=== PATIENT | female | born 1990 | race Caucasian/White ===

== ENCOUNTER 2021-12-30 17:27 | Outpatient (CLI) | payer MEDICAID, SELFPAY ==
--- OUTSIDE RECORDS SUMMARY | 2021-12-30 17:31 | XMS_ITS | Clinical Summary ---
:1990 Author Organization [facility] [place] [address] Care Team Providers Name Role Phone Pcp, No Primary Care Provider Unavailable Allergies No known active allergies Medications Medication Sig Dispensed Refills Start Date End Date Status testosterone APPLY 2 PUMPS TO 0 09/24/2021 Active (ANDROGEL) 20.25 SKIN DAILY mg/1.25 gram (1.62 %) DIRECTED glpm transdermal gel Active Problems Problem Noted Date Infectious mononucleosis 02/15/2013 Depression with anxiety 10/13/2012 Encounters Date Type Specialty Care Team Description 12/15/2021 Medical Messaging Pcp, No Second Opi nion 12/01/2021 Travel 12/01/2021 Nurse Triage Eve Damico Foot Pain/p tejam ALEC Leong 11/15/2021 Transcribe Orders Rachell Fields MD 10/20/2021 Ancillary Procedure 10/20/2021 Office Visit Eve Damico Musculoskel etal Problem ALEC Leong (Multiple joint discomfort and cracking, w orse in hips, concern f or EDS) 10/20/2021 Travel from Last 3 Months Immunizations Name Administration Dates Next Due DTP 02/06/1993, 1992, 1992 DTP-HIB 02/05/1994 DTaP 12/18/1997 HIB HbOC (HibTITER) 02/06/1993, 1992, 1992 MMR 12/18/2001, 02/05/1994 Meningococcal Vaccine (Menactra) 12/22/2004 Oral Polio Vaccine 12/18/1997, 02/06/1993, 1992, 1992 Pneumococcal conj 7-Valent (Prevnar 7) 05/01/1993, 3, 1992 Tdap 12/22/2004 Family History Medical History Relation Name Comments Good Health Father Good Health Mother Relation Name Status Comments Father Mother Social History Tobacco Use Types Packs/Day Years Used Date Never Smoker Smokeless Tobacco: Never Used Tobacco Cessation: Counseling Given: Yes Alcohol Use Standard Drinks/Week Comments Yes 5 (1 standard drink = 0.6 oz pure alcoho l) occ, up to 5 per sitting Alcohol Habits Answer Date Recorded How often do you have a drink containing Not asked alcohol? How many drinks containing alcohol do you have Not asked on a typical day when you are drinking? How often do you have six or more drinks on Not asked one occasion? Comment: occ, up to 5 per sitting 07/20/2012 Sex Assigned at Date Recorded Not on file COVID-19 Exposure Response Date Recorded In the last 10 days, have you been in contact with No / Unsu re 12/01/2021 1:51 PM CDT someone who was confirmed or suspected to have Coronavirus/COVID-19? Obstetrics History Last Filed Vital Signs Vital Sign Reading Time Taken Comments Blood Pressure 109/71 10/20/2021 11:56 AM CDT Pulse 76 10/20/2021 11:56 AM CDT Temperature 36.9 ??C (98.5 ??F) 03/15/2013 2:15 PM [employer] Respiratory Rate 16 07/20/2012 9:50 AM CDT Oxygen Saturation 99% 10/20/2021 11:56 AM CDT Inhaled Oxygen Concentration - - Weight 88.7 kg (195 lb 9.6 oz) 10/20/2021 11:56 AM CDT Height 172.7 cm (5' 8) 03/15/2013 2:15 PM [employer] Body Mass Index - - Plan of Treatment Health Maintenance Due Date Last Done Comments COVID-19 vaccine series (#1) 01/21/1993 Depression screening for age 12+ 2004 BMI (ht and wt on same day) for age 18+ 2010 Hepatitis C screening for age 18-79 2010 Tetanus booster 12/22/2014 12/22/2004 Influenza for age 9-49 12/25/2021 Pap test for age 21-65 06/30/2024 06/30/2021, 06/30/2021 Tdap Completed 12/22/2004 Procedures Procedure Name Priority Date/Time Associated Diagnosis Comme nts XR HIP 1 VIEW W Routine 10/20/2021 12:36 Polyarthralgia Results for this PELVIS BILAT PM CDT Bilateral hip pain procedure are in the results section. SJOGRENS ANTIBODIES Add On 10/20/2021 12:25 Polyarthral lois Results for this PM CDT Bilateral hip pa in procedure are in Positive LEONARD the results (antinuclear antibody) secti on. ZINC SKIMMER ANTIBODY Add On 10/20/2021 12:25 Polyarthralgia Results for this PM CDT Bilateral hip pa in procedure are in Positive LEONARD the results (antinuclear antibody) secti on. ANTI-CAICEDO Add On 10/20/2021 12:25 Polyarthralgia Results for this PM CDT Bilateral hip pa in procedure are in Positive LEONARD the results (antinuclear antibody) secti on. CYCLIC CITRULLINE Add On 10/20/2021 12:25 Polyarthralgi a Results for this PEPTIDE PM CDT Bilateral hip pa in procedure are in Positive LEONARD the results (antinuclear antibody) secti on. RA QUANTITATIVE Add On 10/20/2021 12:25 Polyarthralgia Results for this PM CDT Bilateral hip pa in procedure are in Positive LEONARD the results (antinuclear antibody) secti on. DNA DOUBLE-STRANDED Add On 10/20/2021 12:25 Polyarthral lois Results for this (DSDNA) ANTIBODIES BY PM CDT Bilateral hip pain procedure are in CRITHIDIA LUCILIAE Positive LEONARD the resul ts IFA (antinuclear antibody) secti on. CBC WITH AUTO Routine 10/20/2021 12:25 Polyarthralgia Results for this DIFFERENTIAL PM CDT procedure are i n the results section. ANTINUCLEAR ANTIBODY Routine 10/20/2021 12:25 Polyarthralgia R esults for this BY IFA PM CDT procedure are i n the results section. C-REACTIVE PROTEIN Routine 10/20/2021 12:25 Polyarthralgia Res ults for this PM CDT procedure are i n the results section. SEDIMENTATION RATE Routine 10/20/2021 12:25 Polyarthralgia Res ults for this PM CDT procedure are i n the results section. COMP METABOLIC PANEL Routine 10/20/2021 12:25 Polyarthralgia R esults for this PM CDT procedure are i n the results section. CBC WITH AUTO Routine 10/20/2021 12:25 Polyarthralgia Results for this DIFFERENTIAL PM CDT procedure are i n the results section. LYME SCREEN W/REFLEX Routine 10/20/2021 12:25 Polyarthralgia R esults for this PM CDT procedure are i n the results section. from Last 3 Months Results XR HIP 1 VIEW W PELVIS BILAT (10/20/2021 12:36 PM CDT) Anatomical Region Laterality Modality HIPS, HIPL, HIPR, Pelvis Computed Radiog rose Specimen (Source) Anatomical Collection Method Collection Time Re ceived Time Location / / Volume Laterality 10/20/2021 5:32 PM CDT Narrative 10/20/2021 5:32 PM CDT For Patients: ??As a result of the Cures Act, medical imaging exams and procedure report s are released immediately into your [facility] medical record. ??You may view this report before your referring provider. ??If you have questions, please contact your health care provider. Indication: Bilateral hip pain. Technique: AP pelvis and single view of both hips Comparison: None. Findings/Impression: Bones: Alignment is normal. No fractures or bone lesions. ?? Joint spaces: Unremarkable. Soft tissues: Unremarkable. Dictated by Michelet Guerra MD @ Oct 20 ??5:32PM (Electronically Signed) ?? Procedure Note Michelet Guerra MD - 10/20/2021Form atting of this note might be different from the original. For Patients: As a result of the Cures Act, medical imaging exams and procedure reports are released immediately into your electronic medical record. You may view this report before your referring provider. If you have questions, please contact [facility] health care provider. Indication: Bilateral hip pain. Technique: AP pelvis and single view of both hips Comparison: None. Findings/Impression: Bones: Alignment is normal. No fractures or bone lesions. Joint spaces: Unremarkable. Soft tissues: Unremarkable. Dictated by Michelet Guerra MD @ Oct 20 5:32PM (Electronically Signed) Eve MICHAEL GENERAL IMAGING SEDIMENTATION RATE (10/20/2021 12:25 PM CDT) [facility] Method Time Signature SEDIMENTATION RATE 2 <20 mm/hr 10/20/2021 [facility] 9:26 PM CDT LABORATORY-MALI TRAL LABORATORY Specimen Anatomical Collection Method / Collection Time Recei jw Time (Source) Location / Volume Laterality Blood BLOOD SPECIMEN / Venipuncture / 10/20/2021 12:25 10/20 Unknown Unknown PM CDT 12:30 PM CDT Eve MICHAEL HEMATOLOGY Performing Organization Address City/State/ZIP Code Phon e Number [facility] [address] [place] [address] LABORATORY-CENTRAL 2000 LABORATORY (ABNORMAL) ANTINUCLEAR ANTIBODY BY IFA (10/20/2021 12:25 PM CDT) [facility] Method Time Signature ANTINUCLEAR Positive (A) Negative 10/21/2021 [facility] ANTIBODY (LEONARD) 12:13 PM LABORATORY-CE CDT NTRAL LABORATORY LEONARD PATTERN 1 Homogenous (none) 10/21/2021 [facility] (A) 12:13 PM LABORATORY-CE CDT NTRAL LABORATORY LEONARD TITER 1 1:160 (A) (none) 10/21/2021 [facility] 12:13 PM LABORATORY-CE CDT NTRAL LABORATORY Specimen Anatomical Collection Method / Collection Time Recei jw Time (Source) Location / Volume Laterality Blood BLOOD SPECIMEN / Venipuncture / 10/20/2021 12:25 10/20 Unknown Unknown PM CDT 12:30 PM CDT Narrative [facility] LABORATORY-CENTRAL LABORAT ORY - 10/21/2021 12:13 PM CDT Method: LEONARD screen performed by (IFA) on HEP-2 substrate, IgG Eve MICHAEL CHEMISTRY Performing Organization Address City/State/ZIP Code Phon e Number [facility] [address] [place] [address] LABORATORY-CENTRAL 1999 LABORATORY CBC WITH AUTO DIFFERENTIAL (10/20/2021 12:25 PM CDT) athologist Signature WHITE BLOOD 6.8 4.5 - 11.0 10/20/2021 [facility] COUNT thou/cu mm 12:33 PM CDT [facility] RED BLOOD COUNT 4.89 4.00 - 10/20/2021 [facility] 5.20 12:33 PM T [place] mil/cu CLINIC HEMOGLOBIN 15.0 12.0 - 10/20/2021 [facility] 16.0 g/dL 12:33 PM T [facility] HEMATOCRIT 42.8 33.0 - 10/20/2021 [facility] 51.0 % 12:33 PM T [facility] MCV 88 80 - 100 10/20/2021 [facility] fL 12:33 PM CDT [facility] MCH 30.7 26.0 - 10/20/2021 [facility] 34.0 pg 12:33 PM T [facility] MCHC 35.0 32.0 - 10/20/2021 [facility] 36.0 g/dL 12:33 PM T [facility] RDW 12.7 11.5 - 10/20/2021 [facility] 15.5 % 12:33 PM T [facility] PLATELET COUNT 224 140 - 440 10/20/2021 [facility] thou/cu mm 12:33 PM T [facility] MPV 9.4 6.5 - 11.0 10/20/2021 [facility] fL 12:33 PM T [facility] NEUTROPHILS 54.2 % 10/20/2021 [facility] 12:33 PM T [facility] LYMPHOCYTES 33.8 % 10/20/2021 [facility] 12:33 PM T [facility] MONOCYTES 6.5 % 10/20/2021 [facility] 12:33 PM T [facility] EOSINOPHILS 5.2 % 10/20/2021 [facility] 12:33 PM CDT [facility] BASOPHILS 0.3 % 10/20/2021 [facility] 12:33 PM CDT [facility] ABSOLUTE 3.7 1.7 - 7.0 10/20/2021 [facility] NEUTROPHILS thou/cu mm 12:33 PM CDT [facility] ABSOLUTE 2.3 0.9 - 2.9 10/20/2021 [facility] LYMPHOCYTES thou/cu mm 12:33 PM CDT [facility] ABSOLUTE 0.4 <0.9 10/20/2021 [facility] MONOCYTES thou/cu mm 12:33 PM CDT [facility] ABSOLUTE 0.4 <0.5 10/20/2021 [facility] EOSINOPHILS thou/cu mm 12:33 PM CDT [facility] ABSOLUTE 0.0 <0.3 10/20/2021 [facility] BASOPHILS thou/cu mm 12:33 PM CDT [facility] Specimen Anatomical Collection Method / Collection Time Recei jw Time (Source) Location / Volume Laterality Blood BLOOD SPECIMEN / Venipuncture / 10/20/2021 12:25 10/20 Unknown Unknown PM CDT 12:30 PM CDT Eve MICHAEL HEMATOLOGY Performing Organization Address City/[facility]/ZIP Code Phon e Number [facility] [address] [place] [address] ZINC SKIMMER ANTIBODY (10/20/2021 12:25 PM CDT) P athologist Signature ZINC SKIMMER Antibody <3.5 <=19.9 CU 10/22/2021 [facility] 12:36 PM CDT LABORATORY-[facility] LABORATORY Specimen Anatomical Collection Method / Collection Time Recei jw Time (Source) Location / Volume Laterality Blood BLOOD SPECIMEN / Venipuncture / 10/20/2021 12:25 10/20 Unknown Unknown PM CDT 12:30 PM CDT [facility] LABORATORY-CENTRAL LABORAT ORY - 10/22/2021 12:36 PM CDT Reference Range: ?< 20 CU Negative; ?>=20 CU Positive; ?? These results were obtained with the Clickable Quanta Flash ZINC SKIMMER chemiluminescent immunoassay. Values obtained with different manufacturers' methods may not be used interchangeably. Eve MICHAEL SEND OUTS Performing Organization Address City/State/ZIP Code Phon e Number [facility] [address] [place] [address] LABORATORY-CENTRAL 2000 LABORATORY ANTI-CAICEDO (10/20/2021 12:25 PM CDT) P athologist Signature Sm Antibody <3.3 <=19.9 CU 10/22/2021 [facility] 12:36 PM CDT LABORATORY-CENT RAL LABORATORY Specimen Anatomical Collection Method / Collection Time Recei jw Time (Source) Location / Volume Laterality Blood BLOOD SPECIMEN / Venipuncture / 10/20/2021 12:25 10/20 Unknown Unknown PM CDT 12:30 PM CDT Narrative [facility] 10/22/2021 12:36 PM CDT Reference Range: ? < 20 CU Negative; ? >=20 CU Positive; ?? These results were obtained with the Clickable Quanta Flash Sm chemiluminescent immunoassay. Values obtained with different manufacturers' methods may not be used interchangeably. Eve MICHAEL SEND OUTS Performing Organization Address City/[facility]/ZIP Code Phon e Number [facility] [address] [place] [address] LABORATORY-CENTRAL 2000 LABORATORY (ABNORMAL) SJOGRENS ANTIBODIES (10/20/2021 12:25 PM CDT) Analysis Performed At Patho logist Time Signature Ro52 Antibody <2.3 <=19.9 CU 10/22/2021 [facility] 12:36 PM CDT LABORATORY-MALI TRAL LABORATORY Ro60 Antibody 59.4 (H) <=19.9 CU 10/22/2021 [facility] 12:36 PM CDT LABORATORY-MALI TRAL LABORATORY SS-B ANTIBODY <3.3 <=19.9 CU 10/22/2021 [facility] 12:36 PM CDT LABORATORY-MALI TRAL LABORATORY Specimen Anatomical Collection Method / Collection Time Recei jw Time (Source) Location / Volume Laterality Blood BLOOD SPECIMEN / Venipuncture / 10/20/2021 12:25 10/20 Unknown Unknown PM CDT 12:30 PM CDT Narrative [facility] - 10/22/2021 12:36 PM CDT Reference Range: ? < 20 CU Negative ?? >=20 CU Positive These results were obtained with the Clickable Quanta Flash SS-B, Ro52, Ro60 chemiluminescent immunoassay. Values obtained with different manufacturers' methods may not be used interchangeably. The magnitude of the reported autoantibody levels cannot always be correla anastasiia to an endpoint titer. ? Eve MICHAEL SEND OUTS Performing Organization Address [facility]/ZIP Code Phon e Number [employer] [address] [facility] [place] [address] LABORATORY-CENTRAL 2000 LABORATORY CYCLIC CITRULLINE PEPTIDE (10/20/2021 12:25 PM CDT) athologist Signature CCP <4.6 <=19.9 CU 10/22/2021 [facility] Antibody,IgG/I 12:36 PM CDT LABORATORY-C ENT gA RAL LABORATORY Specimen Anatomical Collection Method / Collection Time Recei jw Time (Source) Location / Volume Laterality Blood BLOOD SPECIMEN / Venipuncture / 10/20/2021 12:25 10/20 Unknown Unknown PM CDT 12:30 PM CDT Narrative [facility] LABORATORY-CENTRAL LABORAT ORY - 10/22/2021 12:36 PM CDT Negative <20 Positive >=20 The following results were obtained with the Frontback[employer] Flash CCP3 chemiluminescent immunoassay. Values obtained with different manufacturers' assay methods may not be used interchangeably. Eve MICHAEL SEND OUTS Performing Organization Address [facility] Phon e Number [facility] [address] [place] [address] LABORATORY-CENTRAL 2000 LABORATORY LYME SCREEN W/REFLEX (10/20/2021 12:25 PM CDT) Analysis Performed At [facility] Time Signature LYME SCREEN Negative Negative 10/21/2021 [facility] W/REFLEX 8:48 AM CDT LABORATORY-MALI TRAL LABORATORY Comment: No detectable antibody; result does not exclude B. burgdorferi infection. An additional sample should be tested withi n 4-6 weeks if early infection is suspected. Specimen Anatomical Collection Method / Collection Time Recei jw Time (Source) Location / Volume Laterality Blood BLOOD SPECIMEN / Venipuncture / 10/20/2021 12:25 10/20 Unknown Unknown PM CDT 12:30 PM CDT Eve MICHAEL SEND OUTS Performing Organization Address City/[facility]/ZIP Code Phon e Number [facility] [address] [facility] [place] [address] LABORATORY-CENTRAL 2000 LABORATORY RA QUANTITATIVE (10/20/2021 12:25 PM CDT) athologist Signature RHEUMATOID <7.00 <12.50 10/21/2021 [facility] FACTOR,QUANT IU/mL 1:26 PM CDT LABORATORY-CENT RAL LABORATORY Specimen Anatomical Collection Method / Collection Time Recei jw Time (Source) Location / Volume Laterality Blood BLOOD SPECIMEN / Venipuncture / 10/20/2021 12:25 10/20 Unknown Unknown PM CDT 12:30 PM CDT Eve MICHAEL SEND OUTS Performing Organization Address City/[facility]/ZIP Code Phon e Number [facility] [address] [place] [address] [address] LABORATORY-CENTRAL 2000 LABORATORY [id number] (10/20/2021 12:25 PM CDT) Analysis Performed At Patho logist Time Signature ANTI-KWINHAGAK Negative Negative 10/22/2021 [facility] DNA 1:04 PM CDT LABORATORY-MALI TRAL LABORATORY Specimen Anatomical Collection Method / Collection Time Recei jw Time (Source) Location / Volume Laterality Blood BLOOD SPECIMEN / Venipuncture / 10/20/2021 12:25 10/20 Unknown Unknown PM CDT 12:30 PM CDT Narrative [facility] LABORATORY-CENTRAL LABORAT ORY - 10/22/2021 1:04 PM CDT Method: DNA Double-Stranded (dsDNA) Anti bodies by Crigood lucmolly IFA, IgG, Serum Eve MICHAEL SEND OUTS Performing Organization Address City/[facility]/ZIP Code Phon e Number [facility] [address] [place] [address] LABORATORY-CENTRAL 2000 LABORATORY C-REACTIVE PROTEIN (10/20/2021 12:25 PM CDT) P athologist Signature C-REACTIVE 0.03 <0.50 10/21/2021 [facility] PROTEIN mg/dL 12:42 AM CDT LABORATORY-CENT RAL LABORATORY Specimen Anatomical Collection Method / Collection Time Recei jw Time (Source) Location / Volume Laterality Blood BLOOD SPECIMEN / Venipuncture / 10/20/2021 12:25 10/20 Unknown Unknown PM CDT 12:30 PM CDT Eve MICHAEL CHEMISTRY Performing Organization Address City/[facility]/ZIP Code Phon e Number [facility] [address] [place] [address] LABORATORY-CENTRAL 2000 LABORATORY COMP METABOLIC PANEL (10/20/2021 12:25 PM CDT) P athologist Signature SODIUM 141 135 - 145 10/21/2021 [facility] mmol/L 12:45 AM CDT LABORATORY-MALI TRAL LABORATORY POTASSIUM 4.1 3.5 - 5.0 10/21/2021 [facility] mmol/L 12:45 AM CDT LABORATORY-MALI TRAL LABORATORY CHLORIDE 104 98 - 110 10/21/2021 [facility] mmol/L 12:45 AM CDT LABORATORY-MALI TRAL LABORATORY CO2,TOTAL 30 21 - 31 10/21/2021 [facility] mmol/L 12:45 AM CDT LABORATORY-MALI TRAL LABORATORY ANION GAP 7 5 - 18 10/21/2021 [facility] 12:45 AM CDT LABORATORY-MALI TRAL LABORATORY GLUCOSE 91 65 - 100 10/21/2021 [facility] mg/dL 12:45 AM CDT LABORATORY-MALI TRAL LABORATORY CALCIUM 10.0 8.5 - 10.5 10/21/2021 [facility] mg/dL 12:45 AM CDT LABORATORY-MALI TRAL LABORATORY BUN 11 8 - 25 10/21/2021 [facility] mg/dL 12:45 AM CDT LABORATORY-MALI TRAL LABORATORY CREATININE 0.87 0.57 - 10/21/2021 [facility] 1.11 mg/dL 12:45 AM CDT LABORATORY-MALI TRAL LABORATORY BUN/CREAT RATIO 13 10 - 20 10/21/2021 [facility] 12:45 AM CDT LABORATORY-MALI TRAL LABORATORY ALBUMIN 4.8 3.5 - 5.2 10/21/2021 [facility] g/dL 12:45 AM CDT LABORATORY-MALI TRAL LABORATORY PROTEIN,TOTAL 8.0 6.0 - 8.0 10/21/2021 [facility] g/dL 12:45 AM CDT LABORATORY-MALI TRAL LABORATORY GLOBULIN 3.2 2.0 - 3.7 10/21/2021 [facility] g/dL 12:45 AM CDT LABORATORY-MALI TRAL LABORATORY A/G RATIO 1.5 1.0 - 2.0 10/21/2021 [facility] 12:45 AM CDT LABORATORY-MALI TRAL LABORATORY BILIRUBIN,TOTAL 0.7 0.2 - 1.2 10/21/2021 [facility] mg/dL 12:45 AM CDT LABORATORY-MALI TRAL LABORATORY ALK PHOSPHATASE 57 50 - 136 10/21/2021 [facility] IU/L 12:45 AM CDT LABORATORY-MALI TRAL LABORATORY ALT (SGPT) 15 8 - 45 10/21/2021 [facility] IU/L 12:45 AM CDT LABORATORY-MALI TRAL LABORATORY AST (SGOT) 19 2 - 40 10/21/2021 [facility] IU/L 12:45 AM CDT LABORATORY-MALI TRAL LABORATORY eGFR >90 >90 10/21/2021 [facility] mL/min/1.7 12:45 AM CDT LABORATORY-MALI 3m2 TRAL LABORATORY Comment: As of 2021, eGFR is calcu lated by the CKD-EPI creatinine equation without race adjustment. eGFR can be inf luenced by muscle mass, exercise, and diet. The reported eGFR is an estimation only and is only applicable if the renal function is stable. Specimen Anatomical Collection Method / Collection Time Recei jw Time (Source) Location / Volume Laterality Blood BLOOD SPECIMEN / Venipuncture / 10/20/2021 12:25 10/20 Unknown Unknown PM CDT 12:30 PM CDT Eve MICHAEL CHEMISTRY Performing Organization Address City/State/ZIP Code Phon e Number [facility] [address] [place] [address] LABORATORY-CENTRAL 2000 LABORATORY from Last 3 Months Insurance Payer Benefit Plan / Subscriber ID Effective Dates Phone Addre ss Type Group [facility] [place] [facility] [place] [id number] 2021-Present [address] [place] [address] Care Teams Corporate Strategy Associate Relationship Specialty Start Date End Date Pcp, No PCP - General 04/01/18 .
[2022-01-01 16:31] LABS: Sex Hormone Binding Globulin 33 nmol/L (25-122); Testosterone, Adult Male 362 ng/dL; Testosterone, Free Calculation 66 pg/mL; Testosterone, Percentage Free 1.8 %
== END 2021-12-30 17:28 | disposition home or self-care (01) ==
LOC: NFLDREF 17:29
PROVIDERS: PCP Family Medicine; Visit Provider Registered Nurse
DX: F64.0 Transsexualism (principal)
CPT/HCPCS: 84270; 84402; 84403

== ENCOUNTER 2022-06-16 10:00 | Outpatient (RCR) | payer MEDICAID, SELFPAY | END 2022-11-12 23:59 | disposition home or self-care (01) | PROVIDERS: PCP Family Medicine; Visit Provider Family Medicine | DX: M35.7 Hypermobility syndrome (principal); M54.9 Dorsalgia, unspecified; Z51.89 Encounter for other specified aftercare | CPT/HCPCS: 97110; 97140; 97163; 97535 ==

== ENCOUNTER 2022-07-06 11:49 | Outpatient (CLI) | payer MEDICAID, SELFPAY | END 2022-07-06 11:50 | disposition home or self-care (01) | LOC: NFLDREF 07-08 11:50 | PROVIDERS: PCP Family Medicine; Referring Provider Family Medicine; Visit Provider Registered Nurse | DX: F64.0 Transsexualism (principal) | CPT/HCPCS: 84270; 84402; 84403 ==

== ENCOUNTER 2022-08-11 14:42 | Outpatient (CLI) | payer MEDICAID, SELFPAY | END 2022-08-11 14:43 | disposition home or self-care (01) | LOC: NFLDREF 14:44 | PROVIDERS: PCP Family Medicine; Visit Provider Registered Nurse | DX: F64.0 Transsexualism (principal); Z13.1 Encounter for screening for diabetes mellitus | CPT/HCPCS: 84270; 84402; 84403 ==

== ENCOUNTER 2022-08-25 08:20 | Outpatient (CLI) | payer MEDICAID, SELFPAY | END 2022-08-25 08:21 | disposition home or self-care (01) | LOC: NFLDREF 22:02 | PROVIDERS: PCP Family Medicine; Referring Provider Family Medicine; Visit Provider Family Medicine | DX: Z00.00 Encounter for general adult medical examination without abnormal findings (principal); E78.5 Hyperlipidemia, unspecified | CPT/HCPCS: 80053; 80061 ==

== ENCOUNTER 2022-12-01 08:15 | Outpatient (RCR) | payer MEDICAID, SELFPAY ==
--- NOTE | 2022-09-14 15:48 | PT.OPEX ---
[facility] PT [facility] Outpatient Eval Start: 09/14/22 14:53 Freq: Status: Active Protocol: Document 09/14/22 14:53 JENNIFER (Rec: 09/14/22 15:41 BJN [id number]) E-signed By Marielos Mckinney DPT Physical Therapy Outpatient Evaluation Insurance Information Recert Due Date 12/13/22 Insurance Name Medicaid,are Medical Diagnosis LBP, dorsalgia, chronic upper back pain Treating Diagnosis LBP, mid/low back pain, R sided SI joint pain with wrap around groin pain, pelvic instability, core/hip/glut weakness Subjective Subjective Patient reports LBP R sided with some wrap around pain R hip/groin. Reports hx of some LBP issues, prior PT. Has been doing some walking and some of the supine exercises from prior PT but admits to getting out of her HEP routine , not doing the ball exercises . Recently started on gabapentin in the evening, this is helping improve sleep and less pain in the mornings. Hasn?t been using ice/heat. Pain range 2-8/10. Pain fluctuates with activity, typically pain is in the 3-5/ 10 range. Date of Last Physician Visit 08/26/22 Current Work Status [employer] Assessment Assessment/Impression 32 year old patient with LBP, mid/low back pain, R sided SI joint pain with wrap around groin pain, pelvic instability , core/hip/glut weakness. Pain range 2-8/10. Patient states that pain/sx fluctuate depending on activity but typical pain levels are 3-5/10 . LBP has been more R sided and wrapping around R hip, into R groin area. Denies LE radicular pain/sx, occasional pain/soreness into R hip/thigh . No prior back, hip, knee surgeries. Recently started on gabapentin before bed and this has been helpful with sleep and less pain in the mornings. Patient is tight, tender with palpation R LB, SI , buttock region. Pelvic rotation noted. Able to correct alignment with MET, stabilized with exercises. Patient has episode of PT last fall and into the new year but has not continued with her HEP. Doing some of the supine exercises, hasn't been doing the stability ball exercises. Patient would benefit from skilled PT for pain/sx management, core/hip/ glut strengthening, improved spine/pelvic stabilization, posture/body mechanics, and establishment of HEP. Plan of Care Rehabilitation Potential Good Physical Therapy Goals 1. Decrease LBP, R hip/thigh/ groin pain to less than/equal to 3/10 with daily/work activities and with the progression of PT activities over the next 4-6 weeks. 2. Patient will be educated on posture/body mechanics and pain management strategies over the next 4-6 weeks for decreased stress to LB/pelvis/hip and improved pelvic stability. 3. Improve core/hip/glut strength and posture over the next 8-10 weeks for improved posture/body mechanics, decreased stress to LB/pelvis/hip, improved pelvic stability, and improved tolerance for extended sitting/standing/walking activities without flare up of pain. 4. Patient will be I with HEP within 10 weeks for progression toward above goals, ongoing self management of pain/sx, ongoing self improvements in core/hip/glut strength, posture/body mechanics, pelvic stability, and for return to PLF with daily/ work/leisure activities without flare up of pain. Coordination/Communication With Referral Source Treatment Plan/Direct Interventions Manual Therapy,Therapeutic Exercises Frequency/Duration 1x/week Patient Will Be Discharged From Therapy Completion of LTG(s),Skills Plateau,Independent w/HEP, Independently Progressing Evaluation Billing Untimed Code Treatment Minutes 24 Complexity Moderate Certification Information Initial Certification Date 09/14/22 Ending Certification Date 12/13/22 Provider Signature Shows Agreement With POC & Medical Necessity Physician Signature & Date Requested Please Sign/Date Here Physician Comment/Change : Physician NPI Number #
== END 2023-03-31 23:59 | disposition home or self-care (01) ==
PROVIDERS: PCP Family Medicine; Visit Provider Family Medicine
DX: M54.50 Low back pain, unspecified (principal); G89.29 Other chronic pain; M54.16 Radiculopathy, lumbar region; M51.36 Other intervertebral disc degeneration, lumbar region; M47.816 Spondylosis without myelopathy or radiculopathy, lumbar region; Z51.89 Encounter for other specified aftercare
CPT/HCPCS: 97110; 97140; 97162

== ENCOUNTER 2022-12-02 14:33 | Outpatient (CLI) | payer MEDICAID, SELFPAY | END 2022-12-02 14:34 | disposition home or self-care (01) | LOC: NFLDREF 14:35 | PROVIDERS: PCP Family Medicine; Visit Provider Registered Nurse | DX: F64.0 Transsexualism (principal); R73.01 Impaired fasting glucose | CPT/HCPCS: 84270; 84402; 84403 ==

== ENCOUNTER 2022-12-15 13:45 | Outpatient (CLI) | payer MEDICAID, SELFPAY ==
--- NOTE | 2022-12-15 13:49 | CRLHL7_ITS ---
For Patients: As a result of the Century Cures Act, medical imaging exams and procedure reports are released immediately into your electronic medical record. You may view this report before your referring provider. If you have questions, please contact your health care provider. Indication: DDD Technique: Noncontrast sagittal and axial T1, T2, and sagittal STIR sequences are provided. Comparison: 08/26/2022 XR Findings: Normal lumbar spinal alignment. Vertebral body heights are maintained. No fractures. No prevertebral or paraspinal edema. No aggressive osseous lesions. Decreased T1 signal and increased T2/stir signal in the L4 inferior endplate and L5 superior endplate and subchondral marrow compatible with Modic type 1 endplate degenerative changes. Disc desiccation at L4-5 and L5-S1. Mild interspace narrowing L4-5 moderate space narrowing at L5-S1. The conus medullaris is normal in signal and location. Bilateral small upper pole renal cysts. T12-L1: No significant spinal canal stenosis or neural foramen narrowing. L1-2: No significant spinal canal stenosis or neural foramen narrowing. L2-3: No significant spinal canal stenosis or neural foramen narrowing. L3-4: Mild disc bulge. No significant spinal canal stenosis or neural foramen narrowing. L4-5: Moderate disc space narrowing and disc desiccation. Circumferential disc bulge and central disc protrusion. Mild spinal canal stenosis and bilateral subarticular recess stenosis. Mild left neural foramen narrowing. L5-S1: Moderate interspace narrowing. Mild facet arthrosis. Disc bulge and endplate osteophytic spurring. No spinal canal stenosis. Moderate right and mild left neural foramen narrowing. Impression: 1. Normal alignment. 2. At L4-5, there is moderate disc degeneration with Modic type 1 endplate degenerative changes. Disc bulge with central protrusion contributes to mild spinal canal stenosis and subarticular recess narrowing. 3. At L5-S1, there is moderate disc degeneration and mild facet arthrosis without significant spinal canal stenosis. Moderate right and mild left neural foramen narrowing. Dictated by Jalen Saavedra MD @ 12/16/2022 10:50:15 AM (Electronically Signed)
== END 2022-12-15 13:46 | disposition home or self-care (01) ==
LOC: MRI 13:46
PROVIDERS: PCP Family Medicine; Visit Provider Family Medicine
DX: M51.36 Other intervertebral disc degeneration, lumbar region (principal); M51.37 Other intervertebral disc degeneration, lumbosacral region; M47.816 Spondylosis without myelopathy or radiculopathy, lumbar region
CPT/HCPCS: 72148

== ENCOUNTER 2023-02-02 07:46 | Outpatient (CLI) | payer MEDICAID, SELFPAY | END 2023-02-02 07:47 | disposition home or self-care (01) | LOC: INJ CL 07:46 | PROVIDERS: PCP Family Medicine; Visit Provider Family Medicine | DX: M54.16 Radiculopathy, lumbar region (principal); M51.26 Other intervertebral disc displacement, lumbar region; M51.36 Other intervertebral disc degeneration, lumbar region | CPT/HCPCS: 62323; J0702; Q9966 ==

== ENCOUNTER 2023-05-11 10:53 | Outpatient (CLI) | payer MEDICAID, SELFPAY ==
--- OUTSIDE RECORDS SUMMARY | 2023-05-11 10:55 | XMS_ITS | Clinical Summary ---
Author Name Unknown Organization [facility] Address [place], [place] [address] Care Team Providers Care Prospect Manager Name Role Phone Pcp, No Primary Care Provider Unavailabl e Allergies No known active allergies Medications Medication Sig Dispensed Refills Start Date End Date Status testosterone (ANDROGEL) 20.25 mg/1.25 gram (1.62 %) glpm transdermal gel APPLY 2 PUMPS TO SKIN DAILY DIRECTED 0 09/24/2021 Active Vyvanse 40 mg capsule Take 40 mg by mouth once daily. 0 09/25/2022 Active gabapentin (NEURONTIN) 100 mg capsule TAKE 1 CAPSULE BY MOUTH EVERY DAY AT BEDTIME 0 09/22/2022 Active buPROPion (WELLBUTRIN XL) 150 mg Extended-Release tablet Take 150 mg by mouth once daily. 0 09/23/2022 Active celecoxib (CELEBREX) 200 mg capsuleIndications: DDD (degenerative disc disease), lumbar Take 1 Capsule (200 mg) by mouth two times daily with meals. 60 Capsule 2 12/03/2022 Active multivitamin (MVI) tablet Take 1 Tablet by mouth once daily. 0 Active sodium chloride (OCEAN) 0.65 % nasal solutionIndications :Nasal obstruction Inhale 2 Sprays into affected nostril(s) every 4 hours. While awake until follow-up appointment. 45 mL 0 12/31/2022 Active oxyCODONE-acetamino phen (PERCOCET) 5-325 mg per tabletIndications:N hellen obstruction Take 1-2 Tablets by mouth every 4 hours if needed for Pain. Max acetaminophen dose: 4000mg in 24 hrs. 15 Tablet 0 12/31/2022 Active methylPREDNISolone (Medrol, Reinaldo,) 4 mg tabletIndications:L umbar radiculopathy Take by mouth as instructed per packaging. 21 Tablet 0 05/06/2023 Active Active Problems Problem Noted Date Diagnosed Date Infectious mononucleosis 02/15/2013 Depression with anxiety 10/13/2012 Encounters Date Type Department Care Team Description 05/11/2023 Travel 05/06/2023 2:20 PM ACTUARIAL INTERN Office Visit [facility] [address] [place] [address] Jame Camarena MD Musculoskeletal Problem (Follow up back pain, SABIHA on 02/02/23) 05/06/2023 Travel from Last 3 Months Immunizations Name Administration Dates Next Due DTP 02/06/1993,1992,1992 DTP-HIB 02/05/1994 DTaP 12/18/1997 HIB HbOC (HibTITER) 02/06/1993,1992,1992 MMR 12/18/2001,02/05/1994 Meningococcal Vaccine (Menactra) 12/22/2004 Oral Polio Vaccine 12/18/1997, 3,1992,09/17 Pneumococcal conj 7-Valent (Prevnar 7) 4,1992,1992 Tdap 12/22/2004 Family History Medical History Relation Name Comments Good Health Father Good Health Mother Relation Name Status Comments Father Mother Social History Tobacco Use Types Packs/Day Years Used Date Smoking Tobacco: Never Smokeless Tobacco: Never Tobacco Cessation:Counseling Given: Yes Alcohol Use Standard Drinks/Week Comments Yes 5 (1 standard drink = 0.6 oz pur e alcohol) 4/month Social Connections Answer Date Recorded Frequency of Communication with Friends and Fami ly Not on file 10/20/2021 Sex and Gender Information Value Date Recorded Sex Assigned at Not on file Gender Identity Not on file Sexual Orientation Not on file Obstetrics History Last Filed Vital Signs Vital Sign Reading Time Taken Comments Blood Pressure 134/89 05/06/2023 2:25 PM ACTUARIAL INTERN Pulse 111 05/06/2023 2:25 PM ACTUARIAL INTERN Temperature 36.8 ??C (98.3 ??F) 05/06/2023 2:25 PM CS T Respiratory Rate 18 01/07/2023 2:14 PM CDT Oxygen Saturation 100% 05/06/2023 2:25 PM ACTUARIAL INTERN Inhaled Oxygen Concentration - - Weight 88.8 kg (195 lb 12.8 oz) 05/06/2023 2:25 PM ACTUARIAL INTERN shoes on Height 172.7 cm (5' 8) 12/31/2022 7:29 AM CDT Body Mass Index 29.77 12/31/2022 7:29 AM CDT Plan of Treatment Upcoming Encounters Date Type Department Care Team (Late st Contact Info) Description 05/11/2023 11:20 AM ACTUARIAL INTERN Office Visit [facility] [address] [place] [address] Jame Camarena MD [address] [place] [address] Arrived 07/01/2023 1:40 PM ACTUARIAL INTERN Office Visit [facility] [address] [place] [address] Jame Camarena MD [address] [place] [address] Health Maintenance Due Date Last Done Comments Depression screening for age 12+ 2004 HIV for age 15-65 07/22/2007 BMI (ht and wt on same day) for age 18+ 2010 Hepatitis C screening for ag e 18-79 2010 Tetanus booster 12/22/2014 12/22/2004 COVID-19 vaccine series ( season) 2022 01/24/2022 Influenza for age 9-49 12/25/2022 Pap test for age 21-65 06/30/2024 2, 06/30/2021 Pneumococcal series for age 6-64 Aged Out 05/01/1993, 1992, 1992 No longer eligible based on patient's age to complete this topic Tdap Completed 12/22/2004 Procedures Procedure Name Priority Date/Time Associated Diagnosis Comments AMB EPIDURAL STEROID INJECTION Routine 05/11/2023 8:02 AM ACTUARIAL INTERN Lumbar radiculopathy DDD (degenerative disc disease), lumbar Lumbar disc herniation Lumbar facet arthropathy from Last 3 Months Advance Directives Latest Code Status on File Code Status Date Activated Date Inactivated Comments Full Code 12/31/2022 6:56 AM 12/31/2022 3:04 PM Question Answer Comments Code Status Discussion: Reviewed Preferences Care Teams Prospect Manager Relationship Specialty Start Date End Date Pcp, No . PCP - General 04/01/18
== END 2023-05-11 10:54 | disposition home or self-care (01) ==
LOC: INJ CL 10:54
PROVIDERS: PCP Family Medicine; Visit Provider Family Medicine
DX: M51.36 Other intervertebral disc degeneration, lumbar region (principal); M54.16 Radiculopathy, lumbar region
CPT/HCPCS: 62323; J0702; Q9966

== ENCOUNTER 2023-07-28 09:15 | Outpatient (RCR) | payer MEDICAID, SELFPAY | END 2023-09-16 13:13 | disposition home or self-care (01) | PROVIDERS: PCP Family Medicine; Visit Provider Family Medicine | DX: M47.816 Spondylosis without myelopathy or radiculopathy, lumbar region (principal); M51.26 Other intervertebral disc displacement, lumbar region; Z51.89 Encounter for other specified aftercare | CPT/HCPCS: 97110; 97140; 97162; 97164 ==

== ENCOUNTER 2023-09-01 11:03 | Outpatient (CLI) | payer MEDICAID, SELFPAY ==
--- OUTSIDE RECORDS SUMMARY | 2023-09-01 11:06 | XMS_ITS | Clinical Summary ---
Author Name Unknown Organization [facility] Address [place], [place] [address] Care Team Providers Care Psychological Operations Officer Name Role Phone Pcp, No Primary Care Provider Unavailabl e Allergies Active Allergy Reactions Criticality Noted Date Comments Oxycodone Nausea Only Medium 06/16/2023 nausea Medications Medication Sig Dispensed Refills Start Date End Date Status testosterone (ANDROGEL) 20.25 mg/1.25 gram (1.62 %) glpm transdermal gel APPLY 2 PUMPS TO SKIN DAILY DIRECTED 09/24/2021 Active Vyvanse 40 mg capsule Take 40 mg by mouth once daily. 09/25/2022 Active gabapentin (NEURONTIN) 100 mg capsule TAKE 1 CAPSULE BY MOUTH EVERY DAY AT BEDTIME 09/22/2022 Active buPROPion (WELLBUTRIN XL) 150 mg Extended-Release tablet Take 150 mg by mouth once daily. 09/23/2022 Active celecoxib (CELEBREX) 200 mg capsuleIndications: DDD (degenerative disc disease), lumbar Take 1 Capsule (200 mg) by mouth two times daily with meals. 60 Capsule 2 12/03/2022 Active multivitamin (MVI) tablet Take 1 Tablet by mouth once daily. Active sodium chloride (OCEAN) 0.65 % nasal solutionIndications :Nasal obstruction Inhale 2 Sprays into affected nostril(s) every 4 hours. While awake until follow-up appointment. 45 mL 12/31/2022 Active oxyCODONE-acetamino phen (PERCOCET) 5-325 mg per tabletIndications:N hellen obstruction Take 1-2 Tablets by mouth every 4 hours if needed for Pain. Max acetaminophen dose: 4000mg in 24 hrs. 15 Tablet 12/31/2022 Active methylPREDNISolone (Medrol, Reinaldo,) 4 mg tabletIndications:L umbar radiculopathy Take by mouth as instructed per packaging. 21 Tablet 05/06/2023 Active tiZANidine (ZANAFLEX) 4 mg tabletIndications:C hronic midline thoracic back pain,Lumbar disc herniation TAKE 1 TABLET(4 MG) BY MOUTH EVERY 6 HOURS NEEDED FOR MUSCLE SPASM 360 Tablet 07/20/2023 Active Active Problems Problem Noted Date Diagnosed Date Infectious mononucleosis 02/15/2013 Depression with anxiety 10/13/2012 Encounters Date Type Department Care Team Description 08/19/2023 8:40 AM CDT Office Visit [facility] [address] [place] [address] Jame Camarena MD Musculoskeletal Problem (Follow up back pain, had an SABIHA on 05/11/23) 08/19/2023 Travel 08/16/2023 Refill [facility] [address] [place] [address] Jame Camarena MD Refill Request (Tizanidine) 07/19/2023 Refill [facility] [address] [place] [address] Jame Camarena MD Refill Request (Tizanidine) from Last 3 Months Immunizations Name Administration [...] Sign Reading Time Taken Comments Blood Pressure 125/83 08/19/2023 8:45 AM CDT Pulse 100 08/19/2023 8:45 AM CDT Temperature 36.8 ??C (98.3 ??F) 05/06/2023 2:25 PM CS T Respiratory Rate 18 01/07/2023 2:14 PM CDT Oxygen Saturation 97% 08/19/2023 8:45 AM CDT Inhaled Oxygen Concentration - - Weight 88.8 kg (195 lb 12.8 oz) 05/06/2023 2:25 PM BIZTALK DEVELOPER shoes on Height 172.7 cm (5' 8) 12/31/2022 7:29 AM CDT Body Mass Index 29.77 12/31/2022 7:29 AM CDT Plan of Treatment Health Maintenance Due Date Last Done Comments Depression screening for age 12+ 2004 HIV for age 15-65 07/22/2007 BMI (ht and wt on same day) for age 18+ 2010 Hepatitis C screening for ag e 18-79 2010 Tetanus booster 12/22/2014 12/22/2004 COVID-19 vaccine series ( season) 2022 01/24/2022 Influenza for age 9-49 12/26/2023 Pap test for age 21-65 06/30/2024 , 06/30/2021 Pneumococcal series for age 6-64 Aged Out 05/01/1993, 1992, 1992 No longer eligible based on patient's age to complete this topic Tdap Completed 12/22/2004 Procedures Procedure Name Priority Date/Time Associated Diagnosis Comments HPV THIN PREP Routine 06/30/2021 3:33 PM BIZTALK DEVELOPER from Last 3 Months or Most Recently Relevant to Health Maintenance Results * HPV HIGH RISK (06/30/2021 3:33 PM BIZTALK DEVELOPER) TYPE 16 Negative Negative 07/03/2021 10:49 AM BIZTALK DEVELOPER [facility] TYPE 18 Negative Negative 07/03/2021 10:49 AM BIZTALK DEVELOPER [facility] OTHER HIGH RISK TYPES Negative Negative 07/03/2021 10:49 AM BIZTALK DEVELOPER [facility] Other (Cervical/Vagina l) 06/30/2021 3:33 PM BIZTALK DEVELOPER 07/02/2021 7:55 AM BIZTALK DEVELOPER Narrative [facility] - 07/03/2021 10:49 AM BIZTALK DEVELOPER HPV types 16, 18, 31, 33, 35, 39, 45, 51, 52, 56, 58, 59, 66 and 68 DNA were undetectable or below the pre-set threshold. Methodology: Joselito Lizandro 4800 HPV Test Jalen Dalton MD MICROBIOLOGY [facility] [address] [place] [address], [place] from Last 3 Months or Most Recently Relevant to Health Maintenance Advance Directives * Full Code (Latest Code Status on File) Date Activated Date Inactivated Comments 12/31/2022 6:56 AM 12/31/2022 3:04 PM Question Answer Comments Code Status Discussion: Reviewed Preferences Care Teams Psychological Operations Officer Relationship Specialty Start Date End Date Pcp, No . PCP - General 04/01/18
== END 2023-09-01 11:04 | disposition home or self-care (01) ==
LOC: NFLDREF 11:04
PROVIDERS: PCP Family Medicine; Visit Provider Family Medicine
DX: R00.0 Tachycardia, unspecified (principal); E78.5 Hyperlipidemia, unspecified
CPT/HCPCS: 80053; 80061; 84443

== ENCOUNTER 2024-04-11 08:44 | Outpatient (CLI) | payer MEDICAID, SELFPAY | END 2024-04-11 08:45 | disposition home or self-care (01) | LOC: INJ CL 08:44 | PROVIDERS: PCP Family Medicine; Visit Provider Family Medicine | DX: M54.16 Radiculopathy, lumbar region (principal); M51.369 Other intervertebral disc degeneration, lumbar region without mention of lumbar back pain or lower extremity pain | CPT/HCPCS: 62323; J0702; Q9966 ==

== ENCOUNTER 2024-08-15 07:24 | Outpatient (CLI) | payer MEDICAID, SELFPAY | END 2024-08-15 07:25 | disposition home or self-care (01) | LOC: INJ CL 07:25 | PROVIDERS: PCP Family Medicine; Visit Provider Family Medicine | DX: M54.16 Radiculopathy, lumbar region (principal); M51.369 Other intervertebral disc degeneration, lumbar region without mention of lumbar back pain or lower extremity pain | CPT/HCPCS: 62323; J0702; Q9966 ==